=== PATIENT | female | born 1960 | race Asian ===

== ENCOUNTER 2018-08-27 05:16 | Inpatient (IN) | payer OTHER ==
[2018-08-27] MEDS ORDERED: SUCCINYLCHOLINE CHLORIDE 100 MG/5 ML SYG IV (07:00)
[2018-08-27] MEDS ORDERED: CEFAZOLIN 1 GM INJ (07:00)
[2018-08-27] MEDS ORDERED: PROPOFOL 20 ML (07:46)
[2018-08-27] MEDS ORDERED: MIDAZOLAM 1 MG/ML 2 ML INJ (07:46)
[2018-08-27] MEDS ORDERED: LIDOCAINE 1% (MDV) 20 ML INJ (07:47)
[2018-08-27] MEDS ORDERED: DEXAMETHASONE 4 MG/ML 5 ML INJ (07:58)
[2018-08-27] MEDS ORDERED: ONDANSETRON 4 MG INJ (07:58)
[2018-08-27] MEDS ORDERED: ONDANSETRON 4 MG INJ IV (08:00)
[2018-08-27] MEDS ORDERED: hydrALAzine 20 MG INJ IV (08:00)
[2018-08-27] MEDS ORDERED: LABETALOL HCL 20MG INJ IV (08:00)
[2018-08-27] MEDS ORDERED: HYDROmorphONE 1 MG/5 ML IV SYRINGE IV ×2 (08:00)
[2018-08-27] MEDS ORDERED: PHENYLephrine (100 MCG/ML) 5ML SYG (08:08)
[2018-08-27] MEDS: CEFAZOLIN 2 GM/50 ML (PMX) 50 ML IVPB ×3 (09:00→23:39)
[2018-08-27] MEDS: SOD CHLORIDE 0.9% 1,000 ML IV ×4 (09:03→20:49)
[2018-08-27] MEDS ORDERED: HYDROCODONE/APAP (5/325) TAB PO (09:30)
[2018-08-27] MEDS ORDERED: HYDROmorphONE 0.5 MG/0.5 ML SYG IV (09:30)
[2018-08-27] MEDS: BUPIVACAINE 0.25% (MPF) 30 ML INJ (09:49)
[2018-08-27] MEDS ORDERED: CEFAZOLIN 2 GM/50 ML (PMX) 50 ML IVPB (10:00)
[2018-08-27 12:18] LABS: ADD MAN DIFF? NO
[2018-08-27 12:22] LABS: BASOPHILS % 0.2 % (0.0-2.0); HEMATOCRIT 40.1 % (37.0-47.0); HEMOGLOBIN 13.2 g/dl (12.0-16.0); LYMPHOCYTES # 0.8 10^3/ul (0.8-2.9); MEAN CORPUSCULAR HEMOGLOBIN 30.2 pg (29.0-33.0); MEAN CORPUSCULAR HGB CONC 32.9 g/dl (32.0-37.0); MEAN CORPUSCULAR VOLUME 91.8 fl (82.0-101.0); MEAN PLATELET VOLUME 8.7 fl (7.4-10.4); MONOCYTE # 0.1 10^3/ul (0.3-0.9); MONOCYTES % 0.6 % (0.0-11.0); NEUTROPHIL # 7.6 10^3/ul (1.6-7.5); NEUTROPHILS % 89.6 % (39.0-77.0); PLATELET COUNT 258 10^3/UL (140-415); RED BLOOD COUNT 4.37 10^6/ul (4.20-5.40); RED CELL DISTRIBUTION WIDTH 11.7 % (11.5-14.5)
[2018-08-27 12:22] LABS: WHITE BLOOD COUNT 8.5 10^3/ul (4.8-10.8)
[2018-08-27 12:39] LABS: ALANINE AMINOTRANSFERASE 19 IU/L (13-69); ALBUMIN 4.5 g/dl (3.3-4.9); ALBUMIN/GLOBULIN RATIO 1.45; ALKALINE PHOSPHATASE 66 IU/L (42-121); ANION GAP 14 (5-13); ASPARTATE AMINO TRANSFERASE 25 IU/L (15-46); BILIRUBIN,INDIRECT 0.3 mg/dl (0-1.1); BILIRUBIN,TOTAL 0.3 mg/dl (0.2-1.3); BLOOD UREA NITROGEN 10 mg/dl (7-20); CALCIUM 8.9 mg/dl (8.4-10.2); CARBON DIOXIDE 25 mmol/L (21-31); CHLORIDE 104 mmol/L (97-110); CREATININE 0.44 mg/dl (0.44-1.00); Estimated GFR > 60 mL/min (>60); GLUCOSE 125 mg/dl (70-220); POTASSIUM 4.3 mmol/L (3.5-5.1); SODIUM 143 mmol/L (135-144); TOTAL PROTEIN 7.6 g/dl (6.1-8.1)
[2018-08-27 15:06] LABS: HEPATITIS C VIRAL ANTIBODY NEGATIVE (NEGATIVE)
[2018-08-27] MEDS: CIPROFLOXACIN 500 MG TAB PO (17:35)
[2018-08-27] MEDS: INSULIN ASPART [NOVOLOG] 3 ML PEN SC ×2 (17:36→20:53)
[2018-08-28] MEDS: ACCU-CHEK XX (02:00)
[2018-08-28 05:17] LABS: ADD MAN DIFF? NO
[2018-08-28 05:20] LABS: BASOPHILS % 0.1 % (0.0-2.0); HEMATOCRIT 38.7 % (37.0-47.0); LYMPHOCYTES # 1.6 10^3/ul (0.8-2.9); MEAN CORPUSCULAR HEMOGLOBIN 30.3 pg (29.0-33.0); MEAN CORPUSCULAR HGB CONC 33.6 g/dl (32.0-37.0); MEAN CORPUSCULAR VOLUME 90.2 fl (82.0-101.0); MEAN PLATELET VOLUME 8.8 fl (7.4-10.4); MONOCYTE # 0.6 10^3/ul (0.3-0.9); MONOCYTES % 6.4 % (0.0-11.0); NEUTROPHIL # 7.7 10^3/ul (1.6-7.5); NEUTROPHILS % 76.9 % (39.0-77.0); PLATELET COUNT 282 10^3/UL (140-415); RED BLOOD COUNT 4.29 10^6/ul (4.20-5.40); RED CELL DISTRIBUTION WIDTH 11.8 % (11.5-14.5)
[2018-08-28 05:37] LABS: HEMOGLOBIN A1C 5.9 % (0-5.9)
[2018-08-28] MEDS: CIPROFLOXACIN 500 MG TAB PO ×2 (06:00→17:26)
[2018-08-28 06:11] LABS: ALANINE AMINOTRANSFERASE 14 IU/L (13-69); ALBUMIN 4.1 g/dl (3.3-4.9); ALBUMIN/GLOBULIN RATIO 1.36; ALKALINE PHOSPHATASE 55 IU/L (42-121); ANION GAP 12 (5-13); ASPARTATE AMINO TRANSFERASE 20 IU/L (15-46); BILIRUBIN,INDIRECT 0.3 mg/dl (0-1.1); BILIRUBIN,TOTAL 0.3 mg/dl (0.2-1.3); BLOOD UREA NITROGEN 9 mg/dl (7-20); CALCIUM 9.4 mg/dl (8.4-10.2); CARBON DIOXIDE 26 mmol/L (21-31); CHLORIDE 106 mmol/L (97-110); CREATININE 0.39 mg/dl (0.44-1.00); Estimated GFR > 60 mL/min (>60); GLUCOSE 114 mg/dl (70-220); POTASSIUM 4.6 mmol/L (3.5-5.1); SODIUM 144 mmol/L (135-144); TOTAL PROTEIN 7.1 g/dl (6.1-8.1)
[2018-08-28] MEDS: SOD CHLORIDE 0.9% 1,000 ML IV (06:19)
[2018-08-28] MEDS: CEFAZOLIN 2 GM/50 ML (PMX) 50 ML IVPB (06:41)
[2018-08-28 07:12] LABS: IONIZED CALCIUM 1.2 mmol/L (1.1-1.4)
[2018-08-28] MEDS: INSULIN ASPART [NOVOLOG] 3 ML PEN SC ×3 (07:59→17:26)
[2018-08-28] MEDS: PANTOPRAZOLE (EC) 40 MG TAB PO (11:53)
== END 2018-08-28 18:05 | disposition home or self-care (01) | DRG 626 ==
LOC: REC 05:16 → PP2 10:59
PROVIDERS: Surgery
PROC: 0GTH0ZZ Resection of Right Thyroid Gland Lobe, Open Approach (ICD-10-PCS; principal; 2018-08-27 07:30)
PROC: 0GBJ0ZZ Excision of Thyroid Gland Isthmus, Open Approach (ICD-10-PCS; 2018-08-27 07:30)
DX: E04.1 Nontoxic single thyroid nodule (principal); N39.0 Urinary tract infection, site not specified; E11.9 Type 2 diabetes mellitus without complications; E78.5 Hyperlipidemia, unspecified; E55.9 Vitamin D deficiency, unspecified; B95.2 Enterococcus as the cause of diseases classified elsewhere
CPT/HCPCS: 80053; 82330; 82962; 83036; 85025; 86803; 88307